=== PATIENT | male | born 1955 | race Hispanic/Latino ===

== ENCOUNTER 2022-10-28 05:34 | Day surgery (SDC) | payer OTHER, MEDICARE ==
[2022-10-26 10:00] LABS: BASOPHILS % (AUTO) 0.5 % (0.0-5.0); EOSINOPHILS % (AUTO) 1.4 % (0.0-8.0); LYMPHOCYTES % (AUTO) 8.7 % (21.0-51.0); MEAN CORPUSCULAR HEMOGLOBIN 28.7 pg (27.0-33.0); MEAN CORPUSCULAR HGB CONC 30.7 g/dL (32.0-36.0); MEAN CORPUSCULAR VOLUME 93.4 fL (79-99); MONOCYTES % (AUTO) 6.8 % (3.0-13.0); NEUTROPHILS % (AUTO) 81.5 % (40.0-77.0); PLATELET COUNT (AUTO) 160 K/uL (130-400); RED BLOOD CELL COUNT(AUTO) 2.89 MIL/uL (4.50-6.20); RED CELL DISTRIBUTION WIDTH 17.2 % (11.0-15.5); WHITE BLOOD COUNT (AUTO) 6.5 K/uL (4.8-10.8)
[2022-10-26 10:05] VITALS: BP 159/91
[2022-10-26 10:11] LABS: POTASSIUM 5.1 mmol/L (3.5-5.1)
[2022-10-26 10:14] LABS: APPEARANCE,URINE CLEAR (CLEAR); BILIRUBIN,URINE NEGATIVE (NEGATIVE); COLOR,URINE LIGHT-YELLOW (YELLOW); GLUCOSE, URINE (UA) NEGATIVE (NEGATIVE); KETONES,URINE NEGATIVE (NEGATIVE); LEUKOCYTE ESTERASE ,URINE 25 Leu/uL (NEGATIVE); NITRATE,URINE NEGATIVE (NEGATIVE); OCCULT BLOOD,URINE SMALL (NEGATIVE); PH,URINE 8.5 (5.0-8.0); PROTEIN,URINE 100 mg/dL (NEGATIVE); UROBILINOGEN,URINE 0.2 mg/dL (0.2-1.0)
[2022-10-26 10:16] LABS: CREATININE 9.2 mg/dL (0.5-1.5)
[2022-10-26 10:19] LABS: B-TYPE NATRIURETIC PEPTIDE 3890 pg/mL (0-100)
[2022-10-26 10:21] LABS: BACTERIA,URINE RARE /HPF (None Seen)
[2022-10-26 10:22] LABS: INR 1.23 (0.85-1.15); PROTHROMBIN TIME 13.2 SEC (9.6-11.6)
[2022-10-26 10:23] LABS: PARTIAL THROMBOPLASTIN TIME 42.4 SEC (26.3-35.5)
[~2022-10-28] VITALS: Ht 165.1 cm; Wt 79.7 kg
[2022-10-28] VITALS (10 sets, daily range): BP systolic 134–162; BP diastolic 76–95
[~2022-10-28 05:34] MED LIST: 0.9%NACL 1000ML 1,000 ML IV SCH; AEC81 PO; APIX5TAB PO; BUPR-317 PO; DOXA2TAB2 PO; FENO145T26 PO; GABA-529 PO; HYDR100T27 PO; LORA10TA7 PO; RISP3TAB63 PO; SIMV-43 PO; VERA240T95 PO
[2022-10-28] MEDS ORDERED: MIDAZOLAM HCL 1 MG/ML 2ML VIAL ONE (07:12)
[2022-10-28] MEDS ORDERED: FENTANYL CITRATE PF 50 MCG/1 ML 2ML VIAL ONE (07:12)
[2022-10-28] MEDS ORDERED: LIDOCAINE HCL 400MG/20ML VIAL ONE (07:12)
[2022-10-28] MEDS ORDERED: IOHEXOL-350 75 ML VIAL IV ONE (07:13)
[2022-10-28] MEDS ORDERED: NITROGLYCERIN 50MG VIAL ONE (07:13)
[2022-10-28] MEDS ORDERED: GLUCAGON 1MG KIT 1 MG ML IM PRN (09:30)
[2022-10-28] MEDS ORDERED: DEXTROSE 50%-WATER 50 ML DISP.SYRIN IV PRN (09:30)
== END 2022-10-28 12:45 | disposition home or self-care (01) ==
LOC: DAH 05:34
PROVIDERS: ATTEND Internal Medicine Cardiovascular Disease
DX: I25.10 Atherosclerotic heart disease of native coronary artery without angina pectoris (principal); I48.0 Paroxysmal atrial fibrillation; I72.8 Aneurysm of other specified arteries; I47.29 Other ventricular tachycardia; I12.0 Hypertensive chronic kidney disease with stage 5 chronic kidney disease or end stage renal disease; N18.6 End stage renal disease; T79.A12A Traumatic compartment syndrome of left upper extremity, initial encounter; E78.5 Hyperlipidemia, unspecified; D64.9 Anemia, unspecified; F20.9 Schizophrenia, unspecified; Z99.2 Dependence on renal dialysis; Z82.49 Family history of ischemic heart disease and other diseases of the circulatory system; Z80.9 Family history of malignant neoplasm, unspecified; Z98.890 Other specified postprocedural states; Z79.82 Long term (current) use of aspirin; Z79.01 Long term (current) use of anticoagulants; Z79.899 Other long term (current) drug therapy; X58.XXXA Exposure to other specified factors, initial encounter; Y93.89 Activity, other specified; Y92.89 Other specified places as the place of occurrence of the external cause; Y99.8 Other external cause status
CPT/HCPCS: 80048; 83880; 85025; 85610; 85730; 87088; 81001; 36415; 71045; 93005; 93454; C1894 ×2; C1760; J3010; J3490 ×2; J7030; J2250; J1644; Q9967; A4215; A4222; A4221; A4663; A4216; A4606; A4223 ×3; 99156; 99157

== ENCOUNTER → 2023-01-13 | Outpatient (CLI) | payer OTHER, MEDICARE ==
[~2023-01-13] MED LIST changes: -0.9%NACL 1000ML 1,000 ML IV SCH; -APIX5TAB PO; -HYDR100T27 PO; -SIMV-43 PO
== END | disposition home or self-care (01) ==
LOC: RAH 12:47
PROVIDERS: ATTEND Internal Medicine Cardiovascular Disease
DX: I82.402 Acute embolism and thrombosis of unspecified deep veins of left lower extremity (principal); R22.42 Localized swelling, mass and lump, left lower limb
CPT/HCPCS: 93971